=== PATIENT | female | born 1965 | race Native Hawaiian/Other Pacific Islander ===

== ENCOUNTER → 2019-08-03 | Emergency (ER) | payer OTHER ==
[~2019-08-03] VITALS: Ht 165.1 cm; Wt 104.3 kg
[~2019-08-03] MED LIST: ASPirin-EC 81 mg tab PO SCH; ATORVASTATIN 20 MG TAB PO SCH; CLOPIDOGREL BISULFATE 75 MG TAB ONE; CLOPIDOGREL BISULFATE 75 MG TAB PO ONE; CLOPIDOGREL BISULFATE 75 MG TAB PO SCH; LABETALOL HCL 5 MG/ML 4ML SYRINGE IV PRN; SODIUM CHLORIDE 0.9% 1,000 ML IV ONE
[2019-08-03 07:00] LABS: Basophils # (auto) 0.1 10 ^3/uL (0-0.2); Basophils % (auto) 0.9 % (0.0-2.0); Eosinophils % (auto) 8.7 % (0.0-7.0); Hematocrit 41.1 % (36.0-46.0); Hemoglobin 13.6 g/dL (12.2-16.2); Lymphocytes # (auto) 4.7 10 ^3/uL (0.4-5.4); Lymphocytes % (auto) 41.1 % (10.0-50.0); Mean Corpuscular Hemoglobin 27.9 pg (28.0-32.0); Mean Corpuscular Volume 84.4 fL (80.0-100.0); Monocytes # (auto) 0.9 10 ^3/uL (0-1.3); Monocytes % (auto) 7.6 % (0.0-12.0); Neutrophils # (auto) 4.8 10 ^3/uL (1.6-8.6); Neutrophils % (auto) 41.7 % (37.0-80.0); Nucleated Red Blood Cells % 0.2 %; Platelet Count (auto) 349 10^3/uL (140-450); Red Blood Cells 4.87 10^6/uL (4.0-5.20); Red Cell Distribution Width 15.9 % (11.8-14.3); White Blood Cell 11.5 10^3/uL (4.4-10.8)
[2019-08-03 07:38] LABS: INR 0.95 (0.9-1.15); Partial Thromboplastin Time 26.3 sec (23.64-32.05)
[2019-08-03 07:43] LABS: Alanine Aminotransferase 13 U/L (13-56); Albumin 3.2 g/dL (3.4-5.0); Anion Gap 7 (5-15); Blood Urea Nitrogen 15 mg/dL (7-18); Calcium 8.5 mg/dL (8.5-10.1); Carbon Dioxide 23 mmol/L (21-32); Chloride 103 mmol/L (98-107); Glucose 171 mg/dL (74-106); Sodium 133 mmol/L (136-145)
[2019-08-03 07:48] LABS: Alkaline Phosphatase 76 U/L (45-117); Aspartate Aminotransferase 12 U/L (15-37); BUN/Creatinine Ratio 13.3; Bilirubin, Total 1.6 mg/dL (0.2-1.0); GFR African American 65 mL/min; GFR Non-African American 54 mL/min; Total Protein 7.9 g/dL (6.4-8.2)
[2019-08-03 08:25] VITALS: BP 142/92
[2019-08-03 08:29] LABS: Cholesterol 170 mg/dL (< 200)
[2019-08-03 08:32] LABS: HDL Cholesterol 47 mg/dL (40-59); LDL Cholesterol 107 mg/dL (< 100); Triglycerides 194 mg/dL (< 150)
== END | disposition home or self-care (01) ==
LOC: ER 06:02
DX: I63.9 Cerebral infarction, unspecified (principal); I10 Essential (primary) hypertension; E87.1 Hypo-osmolality and hyponatremia; D72.829 Elevated white blood cell count, unspecified; J45.909 Unspecified asthma, uncomplicated; E11.9 Type 2 diabetes mellitus without complications
CPT/HCPCS: 36415; 70450; 71045; 80053; 80061; 82962; 83880; 84484; 85025; 85610; 85730; 93005; 96360; 99291

== ENCOUNTER 2021-12-05 09:55 | Emergency (ER) | payer OTHER ==
[~2021-12-05] VITALS: Ht 167.6 cm; Wt 100.0 kg
[2021-12-05 10:25] VITALS: BP 135/86
[2021-12-05] MEDS ORDERED: KETOROLAC TROMETH 60MG/2ML VIAL IM ONE (11:00)
[2021-12-05] MEDS ORDERED: TRAM-297 PO (11:05)
== END 2021-12-05 11:26 | disposition home or self-care (01) ==
LOC: ER 09:55
DX: M47.812 Spondylosis without myelopathy or radiculopathy, cervical region (principal); M54.12 Radiculopathy, cervical region; I10 Essential (primary) hypertension; E11.9 Type 2 diabetes mellitus without complications; J45.909 Unspecified asthma, uncomplicated; Z90.49 Acquired absence of other specified parts of digestive tract; Z86.73 Personal history of transient ischemic attack (TIA), and cerebral infarction without residual deficits; Z79.899 Other long term (current) drug therapy; Z88.8 Allergy status to other drugs, medicaments and biological substances
CPT/HCPCS: 72040; 93005; 96372; 99283; J1885

== ENCOUNTER → 2022-10-16 | Day surgery (SDC) | payer OTHER ==
[2022-10-13 11:47] LABS: Basophils # (auto) 0 10 ^3/uL (0-0.2); Basophils % (auto) 0.5 % (0.0-2.0); Eosinophils # (auto) 0.4 10 ^3/uL (0-0.8); Eosinophils % (auto) 4.1 % (0.0-7.0); Hematocrit 39.3 % (36.0-46.0); Hemoglobin 13.2 g/dL (12.2-16.2); Lymphocytes # (auto) 3.5 10 ^3/uL (0.4-5.4); Lymphocytes % (auto) 37.1 % (10.0-50.0); Mean Corpuscular Hemoglobin 28.4 pg (28.0-32.0); Mean Corpuscular Hgb Conc. 33.4 g/dL (32.0-36.0); Monocytes % (auto) 10.4 % (0.0-12.0); Neutrophils # (auto) 4.5 10 ^3/uL (1.6-8.6); Neutrophils % (auto) 47.9 % (37.0-80.0); Nucleated Red Blood Cells % 0.1 %; Red Blood Cells 4.63 10^6/uL (4.0-5.20); Red Cell Distribution Width 16.1 % (11.8-14.3); White Blood Cell 9.3 10^3/uL (4.4-10.8)
[2022-10-13 12:10] LABS: INR 0.99 (0.9-1.15); Partial Thromboplastin Time 29.4 SEC (24.5-34.5); Prothrombin Time 10.4 sec (9.3-11.8)
[2022-10-13 12:17] LABS: Potassium 4.2 mmol/L (3.5-5.1)
[2022-10-13 12:36] LABS: Albumin 3.7 g/dL (3.4-5.0); BUN/Creatinine Ratio 16.8 (10.0-20.0); Bilirubin, Total 2.1 mg/dL (0.2-1.0); Calcium 9.1 mg/dL (8.5-10.1); Total Protein 7.9 g/dL (6.4-8.2)
[~2022-10-16] VITALS: Ht 167.6 cm; Wt 104.3 kg
[~2022-10-16] MED LIST changes: +AMLO1TAB23 PO; +ASPI81CH59 PO; -ASPirin-EC 81 mg tab PO SCH; +ATO40T PO; -ATORVASTATIN 20 MG TAB PO SCH; +CETI10TA2 PO; +CHOL1TAB28 PO; -CLOPIDOGREL BISULFATE 75 MG TAB ONE; -CLOPIDOGREL BISULFATE 75 MG TAB PO ONE; -CLOPIDOGREL BISULFATE 75 MG TAB PO SCH; +FLUMAZENIL 0.1 MG/ML INJ 10ML MDV IV ONE; +FLUT1SPR5; +GLIP10TA9 PO; -LABETALOL HCL 5 MG/ML 4ML SYRINGE IV PRN; +LOSA100T58 PO; +METO-289 PO; +NALOXONE HCL 0.4 MG/ML VIAL ONE; -SODIUM CHLORIDE 0.9% 1,000 ML IV ONE
[2022-10-16 13:12] VITALS: PULSE 72; RESP 15; O2SAT 100
[2022-10-16] MEDS: diphenhdrAMINE HCL 50 MG/1 ML VL ONE ×2 (13:17→13:18)
[2022-10-16] MEDS: MIDAZOLAM HCL 2MG/2ML 2ml VIAL (1mg/ml) ONE ×2 (13:17→13:20)
[2022-10-16] MEDS: fentaNYL CITRATE 100 MCG/2 ML VL ONE ×2 (13:17→13:20)
[2022-10-16 13:35] VITALS: TEMP 98
[2022-10-16 13:55] VITALS: BP 145/69; PULSE 64; RESP 14; O2SAT 97
== END | disposition home or self-care (01) ==
LOC: GI 12:23
PROVIDERS: ATTEND Internal Medicine Gastroenterology
DX: K59.00 Constipation, unspecified (principal); D12.2 Benign neoplasm of ascending colon; K64.8 Other hemorrhoids; I10 Essential (primary) hypertension; E78.5 Hyperlipidemia, unspecified; E11.9 Type 2 diabetes mellitus without complications; Z88.1 Allergy status to other antibiotic agents; Z87.01 Personal history of pneumonia (recurrent); Z88.6 Allergy status to analgesic agent; Z98.51 Tubal ligation status; Z79.82 Long term (current) use of aspirin; Z79.899 Other long term (current) drug therapy; Z98.890 Other specified postprocedural states
CPT/HCPCS: 36415; 45380; 80053; 82962; 85025; 85610; 85730; 88305; J1200; J2250; J3010; J7030; 99152